=== PATIENT | female | born 1960 | race African-American/Black ===

== ENCOUNTER 2016-11-16 17:27 | Emergency (ER) | payer SELFPAY ==
[~2016-11-16] VITALS: Ht 162.6 cm; Wt 84.4 kg
[2016-11-16 18:08] VITALS: BP 156/86
--- NOTE | 2016-11-16 20:53 | NUR ---
PATIENT LEFT WITHOUT BEING SEEN BY DR. GALLAGHER. NO FURTHER CARE PROVIDED FOR PATIENT.
== END 2016-11-16 20:53 | disposition left against medical advice (07) ==
LOC: MED 17:27 → EDBD 17:27 → MED 20:53
DX: R51 Headache (principal); Z53.21 Procedure and treatment not carried out due to patient leaving prior to being seen by health care provider

== ENCOUNTER 2016-11-29 19:06 | Emergency (ER) | payer SELFPAY ==
[~2016-11-29] VITALS: Ht 154.9 cm; Wt 86.6 kg
[2016-11-29 19:37] VITALS: BP 158/84
--- NOTE | 2016-11-29 19:42 | NUR ---
PT TAKEN TO BED 4
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
--- NOTE | 2016-11-29 19:48 | NUR ---
Dr. Will evaluating patient at bedside.
[2016-11-29] MEDS ORDERED: KETOROLAC 30 MG/ML VIAL IM ONE (19:50)
--- NOTE | 2016-11-29 21:00 | NUR ---
Patient discharged with v/s stable. Written and verbal after care instructions given and explained. Patient alert, oriented and verbalized understanding of instructions. Ambulatory with to car. All questions addressed prior to discharge. ID band removed. Patient advised to follow up with PMD. Rx of VALIUM 5MG, NAPROSYN 500MG given. Patient educated on indication of medication including possible reaction and side effects. Opportunity to ask questions provided and answered.
[2016-11-30 00:11] VITALS: BP 140/79
== END 2016-11-29 21:00 | disposition home or self-care (01) ==
LOC: MED 19:06
DX: S39.012A Strain of muscle, fascia and tendon of lower back, initial encounter (principal); S83.91XA Sprain of unspecified site of right knee, initial encounter; R07.89 Other chest pain; V49.9XXA Car occupant (driver) (passenger) injured in unspecified traffic accident, initial encounter; Y93.89 Activity, other specified; Y92.89 Other specified places as the place of occurrence of the external cause; Y99.8 Other external cause status
CPT/HCPCS: 29505; 71020; 72110; 73562; 93005; 96372; 99284; J1885

== ENCOUNTER 2018-11-19 15:51 | Emergency (ER) | payer SELFPAY ==
[~2018-11-19] VITALS: Ht 167.6 cm; Wt 88.6 kg
[2018-11-19 15:54] VITALS: BP 170/87
[2018-11-19] MEDS ORDERED: KETOROLAC 60 MG/2 ML VIAL IM ONE (16:25)
[2018-11-19] MEDS ORDERED: DEXAMETHASONE 10 MG/ML VIAL IM ONE (16:25)
--- NOTE | 2018-11-19 16:34 | NUR ---
C/O HIP PAIN X4 DAYS. PT REPORTS CONSTANT SHARP BL HIP PAIN THAT RADIATES DOWN TO LEGS. PT DENIES TRAUMA. NO EDEMA, ERYTHEMA, BRUISING, OR DEFORMITY PRESENT. +CMS. MEDHX:DENIES RX:DENIES
--- NOTE | 2018-11-19 17:07 | NUR ---
RECEIVED REPORT FROM TIM OLSON. TRANSFER OF CARE AT THIS TIME.
--- NOTE | 2018-11-19 17:24 | NUR ---
Patient discharged with v/s stable. Written and verbal after care instructions given and explained. Patient alert, oriented and verbalized understanding of instructions. Ambulatory with steady gait. All questions addressed prior to discharge. ID band removed. Patient advised to follow up with PMD. Rx of TRAMADOL 50MG, ROBAXIN 500MG, MOTRIN 800MG ANS GABAPENTIN 300MG given. Patient educated on indication of medication including possible reaction and side effects. Opportunity to ask questions provided and answered.
[2018-11-19 17:26] VITALS: BP 148/92
== END 2018-11-19 17:24 | disposition home or self-care (01) ==
LOC: MED 15:51
DX: M54.32 Sciatica, left side (principal); M54.31 Sciatica, right side; Z88.8 Allergy status to other drugs, medicaments and biological substances
CPT/HCPCS: 72131; 96372; 99284; J1100; J1885